=== PATIENT | male | born 1990 | race African-American/Black ===

== ENCOUNTER 2024-06-26 02:52 | Emergency (ER) | payer OTHER ==
[~2024-06-26] VITALS: Ht 165.1 cm; Wt 78.6 kg
[2024-06-26 02:58] VITALS: TEMP 36.6; O2SAT 99
[2024-06-26] MEDS ORDERED: DOLU1TAB MT (03:29)
[2024-06-26 03:49] VITALS: BP 123/81; PULSE 114; RESP 20; O2SAT 100
== END 2024-06-26 03:51 | disposition home or self-care (01) ==
LOC: ER 02:52
DX: Z76.0 Encounter for issue of repeat prescription (principal)
CPT/HCPCS: 99281

== ENCOUNTER 2024-07-31 09:14 | Emergency (ER) | payer MEDICAID, OTHER ==
[~2024-07-31] VITALS: Ht 170.2 cm; Wt 82.0 kg
[~2024-07-31 09:14] MED LIST: DOLU1TAB MT
[2024-07-31 09:20] VITALS: O2SAT 99
[2024-07-31 09:33] VITALS: BP 133/93; PULSE 63; RESP 16; TEMP 36.6; O2SAT 100
[2024-07-31] MEDS ORDERED: DOLU1TAB MT (09:44)
== END 2024-07-31 10:03 | disposition home or self-care (01) ==
LOC: ER 09:14
DX: Z76.0 Encounter for issue of repeat prescription (principal); I10 Essential (primary) hypertension; Z59.00 Homelessness unspecified
CPT/HCPCS: 99281